=== PATIENT | male | born 1995 | race Caucasian/White ===

== ENCOUNTER → 2019-05-03 | Outpatient (CLI) | payer BC ==
[2019-05-05 23:06] LABS: CHLAMYDIA TRACHOMATIS, NAA Negative (Negative); NEISSERIA GONORRHOEAE, NAA Negative (Negative)
== END | disposition home or self-care (01) ==
LOC: LAB SHORT 10:35 → LAB EV 10:35 → LAB 10:35
PROVIDERS: Family Medicine
DX: R30.0 Dysuria (principal)
CPT/HCPCS: 87491; 87591

== ENCOUNTER 2019-11-05 17:12 | Inpatient (IN) | payer BC ==
[~2019-11-05] VITALS: Ht 180.3 cm; Wt 109.4 kg
[2019-11-05 17:58] LABS: Hematocrit 46.6 % (37.0-53.0); Hemoglobin 16.4 g/dL (13.5-17.5); Mean Corpuscular HGB 29.2 pg (26.0-34.0); Mean Corpuscular HGB Conc 35.2 g/dL (31.5-36.5); Mean Corpuscular Volume 83 fL (80-100); Mean Platelet Volume 8.9 fL (9.1-12.4); Platelet Count 483 K/mm3 (150-400); RDW Coefficient Variation 12.1 % (11.7-14.2); RDW Standard Deviation 36.9 fL (35.1-46.3); Red Blood Cell Count 5.61 M/mm3 (4.30-5.90); White Blood Cell Count 17.24 K/mm3 (4.00-11.30)
[2019-11-05] MEDS ORDERED: OXCA150 PO (18:13)
[2019-11-05] MEDS ORDERED: Oxcarbazepine600 MG PO (18:14)
[2019-11-05 18:24] LABS: Alanine Aminotransfer (ALT/SGP 61 U/L (12-78); Albumin, Blood 4.6 g/dL (3.4-5.0); Albumin/Globulin Ratio 1.4 (0.8-1.8); Alk Phos 97 U/L (50-136); Anion Gap 13 mmol/L (6-16); Aspartate Aminotrans (AST/SGOT 28 U/L (12-37); Bilirubin, Total 0.4 mg/dL (0.1-1.0); Blood Urea Nitrogen 17 mg/dL (8-24); Bun/Creatinine Ratio 19.5 (12.0-20.0); CO2, Blood 20 mmol/L (21-32); Calcium, Blood 9.7 mg/dL (8.5-10.1); Chloride, Blood 105 mmol/L (98-108); Creatinine, Blood 0.87 mg/dL (0.60-1.20); Globulin, Blood 3.2 g/dL (2.2-4.0); Glomerular Filtration Rate >60 (60-); Glucose, Blood 139 mg/dL (70-99); Potassium, Blood 2.7 mmol/L (3.5-5.5); Sodium, Blood 138 mmol/L (136-145); Total Protein, Blood 7.8 g/dL (6.4-8.2)
[2019-11-05 18:37] LABS: BASOPHILS PERCENT MAN 0 % (0-2); EOSINOPHILS PERCENT MAN 0 % (0-6); LYMPHOCYTES % ATYPICAL MANUAL 9 % (0-0); LYMPHOCYTES ABSOLUTE MAN 6.72 K/mm3 (0.84-5.20); LYMPHOCYTES PERCENT MAN 30 % (21-46); MONOCYTES ABSOLUTE MAN 0.68 K/mm3 (0.16-1.47); MONOCYTES PERCENT MAN 4 % (4-13); NEUTROPHILS ABSOLUTE MAN 9.82 K/mm3 (1.96-9.15); SEG NEUTROPHILS PERCENT MAN 57 % (41-73); TOTAL CELLS COUNTED 100
[2019-11-06 04:12] LABS: Hemoglobin 14.5 g/dL (13.5-17.5); Mean Corpuscular HGB 28.9 pg (26.0-34.0); Mean Corpuscular HGB Conc 33.7 g/dL (31.5-36.5); Mean Platelet Volume 8.7 fL (9.1-12.4); Platelet Count 287 K/mm3 (150-400); RDW Coefficient Variation 12.2 % (11.7-14.2); RDW Standard Deviation 38.5 fL (35.1-46.3); Red Blood Cell Count 5.01 M/mm3 (4.30-5.90); White Blood Cell Count 11.73 K/mm3 (4.00-11.30)
[2019-11-06 04:14] LABS: Mean Corpuscular Volume 86 fL (80-100)
[2019-11-06 04:36] LABS: Anion Gap 10 mmol/L (6-16); Blood Urea Nitrogen 13 mg/dL (8-24); Bun/Creatinine Ratio 20.4 (12.0-20.0); CO2, Blood 22 mmol/L (21-32); Calcium, Blood 7.8 mg/dL (8.5-10.1); Chloride, Blood 107 mmol/L (98-108); Creatinine, Blood 0.64 mg/dL (0.60-1.20); Glomerular Filtration Rate >60 (60-); Glucose, Blood 122 mg/dL (70-99); Potassium, Blood 4.1 mmol/L (3.5-5.5); Sodium, Blood 139 mmol/L (136-145)
--- NOTE | 2019-11-06 04:56 | NUR ---
SHIFT SUMMARY PT NEW ED ADMIT THIS EVENING WITH DX OF PANCREATITIS. PT A/O, STEADY ON FEET. AMBULATES INDEPENDENTLY. PT DID ATTEMPT TO TAKE A WALK IN THE HALLWAY BUT BECAME MORE PAINFUL AND RETURNED TO HIS BED. PT MEDICATED Q 2 HRS WITH 1 MG DILAUDID FOR ABD PAIN. PT ALSO HAD SEVERAL EPISODES OF NAUSEA AND ONE EPISODE OF VOMITING. 200 ML'S OF BILE APPEARING EMESIS. MEDICATED X 1 W/ ZOFRAN 4 MG. PT SLEPT OFF AND ON FOR SHORT BITS OF TIME AFTER BEING MEDICATED FOR PAIN, OTHERWISE WAS AWAKE THROUGHOUT THE NIGHT. VITAL SIGNS STABLE. PT RESTING IN BED AT THIS TIME. WILL CONTINUE TO MONITOR.
--- NOTE | 2019-11-06 12:28 | NUR ---
CLEAR LIQUID PER DR. MOSQUEDA, START PATIENT ON CLEAR LIQUID DIET
--- NOTE | 2019-11-06 19:22 | NUR ---
Shift Summary A/Ox4, pleasant and cooperative, calls appropriately using call light. Independent in room, urinal at bedside. Medicated for 7-9/10 left upper abd pain radiating to back per EMAR x 5 which provided moderate relief for the first 30 minutes according to patient. Patient slept on and off during the day. Medicated for nausea x 2. Patient reports bile appearing emesis after drinking water and PO liquid intakes. C/o increasing abdominal pain after drinking applejuice, otherwise, VSS, afebrile.
[2019-11-07 06:16] LABS: BASOPHILS ABSOLUTE AUTO 0.03 K/mm3 (0.00-0.23); BASOPHILS PERCENT AUTO 0 % (0-2); EOSINOPHILS ABSOLUTE AUTO 0.13 K/mm3 (0.00-0.68); EOSINOPHILS PERCENT AUTO 1 % (0-6); Hematocrit 43.1 % (37.0-53.0); Hemoglobin 14.7 g/dL (13.5-17.5); IMMATURE GRAN ABSOLUTE AUTO 0.03 K/mm3 (0.00-0.10); IMMATURE GRAN PERCENT AUTO 0 % (0-1); LYMPHOCYTES ABSOLUTE AUTO 1.03 K/mm3 (0.84-5.20); LYMPHOCYTES PERCENT AUTO 8 % (21-46); MONOCYTES ABSOLUTE AUTO 1.02 K/mm3 (0.16-1.47); MONOCYTES PERCENT AUTO 8 % (4-13); Mean Corpuscular HGB 29.3 pg (26.0-34.0); Mean Corpuscular HGB Conc 34.1 g/dL (31.5-36.5); Mean Corpuscular Volume 86 fL (80-100); Mean Platelet Volume 8.5 fL (9.1-12.4); NEUTROPHILS ABSOLUTE AUTO 11.23 K/mm3 (1.96-9.15); NEUTROPHILS PERCENT AUTO 83 % (41-73); Platelet Count 267 K/mm3 (150-400); RDW Coefficient Variation 12.3 % (11.7-14.2); RDW Standard Deviation 38.5 fL (35.1-46.3); Red Blood Cell Count 5.02 M/mm3 (4.30-5.90); White Blood Cell Count 13.47 K/mm3 (4.00-11.30)
[2019-11-07 06:32] LABS: Albumin, Blood 3.8 g/dL (3.4-5.0); Anion Gap 9 mmol/L (6-16); Blood Urea Nitrogen 7 mg/dL (8-24); Bun/Creatinine Ratio 9.8 (12.0-20.0); CO2, Blood 25 mmol/L (21-32); Calcium, Blood 8.5 mg/dL (8.5-10.1); Chloride, Blood 103 mmol/L (98-108); Creatinine, Blood 0.71 mg/dL (0.60-1.20); Glomerular Filtration Rate >60 (60-); Glucose, Blood 91 mg/dL (70-99); Phosphorus, Blood 2.9 mg/dL (2.5-4.9); Potassium, Blood 3.7 mmol/L (3.5-5.5); Sodium, Blood 137 mmol/L (136-145)
--- NOTE | 2019-11-07 07:30 | NUR ---
SHIFT SUMMARY PATIENT ALERT AND ORIENTED, INDEPENDANT GETTING UP AND AROUND IN HIS ROOM. PATIENT MEDICATED PER EMAR FOR PAIN AND NAUSEA. PATIENT'S IV PATENT AND INFUSING WITH LACTATED RINGERS AT 100 ML/HR. BED IN LOWEST POSITION WITH WHEELS LOCKED. CALL LIGHT WITHIN REACH. REPORT GIVEN TO ONCOMING RN.
--- NOTE | 2019-11-07 17:33 | NUR ---
PT CONINTINES TO HAVE PAIN AND IS MEDICATED PER EMAR. HIS IS ABLE TO AMBULATE TO RESTROOM. PT IS ALERT AND ORIENTED . NO ACUTE CHANGES.
[2019-11-08 05:02] LABS: BASOPHILS ABSOLUTE AUTO 0.03 K/mm3 (0.00-0.23); BASOPHILS PERCENT AUTO 0 % (0-2); EOSINOPHILS ABSOLUTE AUTO 0.23 K/mm3 (0.00-0.68); EOSINOPHILS PERCENT AUTO 2 % (0-6); Hematocrit 42.7 % (37.0-53.0); Hemoglobin 14.4 g/dL (13.5-17.5); IMMATURE GRAN ABSOLUTE AUTO 0.04 K/mm3 (0.00-0.10); IMMATURE GRAN PERCENT AUTO 0 % (0-1); LYMPHOCYTES ABSOLUTE AUTO 1.28 K/mm3 (0.84-5.20); LYMPHOCYTES PERCENT AUTO 10 % (21-46); MONOCYTES ABSOLUTE AUTO 1.36 K/mm3 (0.16-1.47); MONOCYTES PERCENT AUTO 10 % (4-13); Mean Corpuscular HGB Conc 33.7 g/dL (31.5-36.5); Mean Corpuscular Volume 86 fL (80-100); Mean Platelet Volume 8.6 fL (9.1-12.4); NEUTROPHILS ABSOLUTE AUTO 10.49 K/mm3 (1.96-9.15); NEUTROPHILS PERCENT AUTO 78 % (41-73); Platelet Count 273 K/mm3 (150-400); RDW Coefficient Variation 12.2 % (11.7-14.2); RDW Standard Deviation 38.6 fL (35.1-46.3); Red Blood Cell Count 4.96 M/mm3 (4.30-5.90); White Blood Cell Count 13.43 K/mm3 (4.00-11.30)
[2019-11-08 05:26] LABS: Albumin, Blood 3.7 g/dL (3.4-5.0); Anion Gap 10 mmol/L (6-16); Blood Urea Nitrogen 7 mg/dL (8-24); Bun/Creatinine Ratio 10.7 (12.0-20.0); CO2, Blood 23 mmol/L (21-32); Calcium, Blood 8.6 mg/dL (8.5-10.1); Chloride, Blood 102 mmol/L (98-108); Creatinine, Blood 0.65 mg/dL (0.60-1.20); Glomerular Filtration Rate >60 (60-); Glucose, Blood 76 mg/dL (70-99); Phosphorus, Blood 2.8 mg/dL (2.5-4.9); Potassium, Blood 3.5 mmol/L (3.5-5.5); Sodium, Blood 135 mmol/L (136-145)
--- NOTE | 2019-11-08 07:27 | NUR ---
SHIFT SUMMARY PATIENT ALERT AND ORIENTED. PATIENT MEDICATED PER EMAR FOR PAIN. PATIENT STATED THAT PAIN CONTROL WAS BETTER THAN THE PREVIOUS NIGHT HE WAS ABLE TO GET MORE SLEEP. POWERGLIDE PATENT AND INFUSING WITH LACTATED RINGERS AT 100 ML/HR. BED IN LOWEST POSITION WITH WHEELS LOCKED. CALL LIGHT WITHIN REACH. REPORT GIVEN TO ONCOMING RN.
--- NOTE | 2019-11-08 18:14 | NUR ---
PT CONTINUES TO HAVE PAIN ESPICALLY AFTER DRINKING SUGARY DRINKS. HE IS PLEASANT AND COOPERATIVE WITH CARES. HE AMBULATES SAFELY TO THE RESTROOM. HE IS MEDICATED PER EMAR. GI CONSULTED WITH PT THIS SHIFT. CALL LIGHT WITH IN REACH.
[2019-11-09 05:09] LABS: BASOPHILS ABSOLUTE AUTO 0.05 K/mm3 (0.00-0.23); BASOPHILS PERCENT AUTO 0 % (0-2); EOSINOPHILS ABSOLUTE AUTO 0.29 K/mm3 (0.00-0.68); EOSINOPHILS PERCENT AUTO 2 % (0-6); Hematocrit 42.9 % (37.0-53.0); Hemoglobin 14.7 g/dL (13.5-17.5); IMMATURE GRAN ABSOLUTE AUTO 0.04 K/mm3 (0.00-0.10); IMMATURE GRAN PERCENT AUTO 0 % (0-1); LYMPHOCYTES ABSOLUTE AUTO 1.63 K/mm3 (0.84-5.20); LYMPHOCYTES PERCENT AUTO 13 % (21-46); MONOCYTES ABSOLUTE AUTO 1.23 K/mm3 (0.16-1.47); MONOCYTES PERCENT AUTO 10 % (4-13); Mean Corpuscular HGB 29.3 pg (26.0-34.0); Mean Corpuscular HGB Conc 34.3 g/dL (31.5-36.5); Mean Corpuscular Volume 86 fL (80-100); NEUTROPHILS ABSOLUTE AUTO 9.18 K/mm3 (1.96-9.15); NEUTROPHILS PERCENT AUTO 74 % (41-73); Platelet Count 298 K/mm3 (150-400); RDW Coefficient Variation 12.2 % (11.7-14.2); RDW Standard Deviation 37.6 fL (35.1-46.3); Red Blood Cell Count 5.02 M/mm3 (4.30-5.90); White Blood Cell Count 12.42 K/mm3 (4.00-11.30)
[2019-11-09 05:27] LABS: Albumin, Blood 3.5 g/dL (3.4-5.0); Anion Gap 11 mmol/L (6-16); Blood Urea Nitrogen 8 mg/dL (8-24); CO2, Blood 24 mmol/L (21-32); Calcium, Blood 8.8 mg/dL (8.5-10.1); Chloride, Blood 100 mmol/L (98-108); Creatinine, Blood 0.67 mg/dL (0.60-1.20); Glomerular Filtration Rate >60 (60-); Glucose, Blood 81 mg/dL (70-99); Phosphorus, Blood 2.8 mg/dL (2.5-4.9); Potassium, Blood 3.4 mmol/L (3.5-5.5); Sodium, Blood 135 mmol/L (136-145)
--- NOTE | 2019-11-09 06:35 | NUR ---
SHIFT SUMMARY PATIENT ALERT AND ORIENTED AND INDEPENDENT IN HIS ROOM. PATIENT MEDICATED FOR PAIN PER EMAR. POWERGLIDE PATENT AND FLUSHED. BED IN LOWEST POSITION WITH WHEELS LOCKED. CALL LIGHT WITHIN REACH. REPORT GIVEN TO ONCOMING RN.
[2019-11-09] MEDS ORDERED: ONDA4ODT MM (10:16)
[2019-11-09] MEDS ORDERED: Percocet 5-3251 EACH PO (10:16)
--- NOTE | 2019-11-09 10:52 | NUR ---
DISCHARGE INSTRUCTIONS REVIEWED WITH PT, PG DC'D INTACT. RX FAXED TO [facility] AND HARD SCRIPT FOR PERCOCET GIVEN TO PT. DR MOSQUEDA CALLED PRIOR TO DISCHARGE AND SPOKE WITH DR MYERS. NEW PCP ASSIGNED FOR PT THROUGH [facility] [employer] [facility] AND APPT MADE FOR 11/12, PT CALLED AND SPOKE WITH DR FUENTES OFFICE AT [facility] FOR F/U APPT WITH THEM. PT INSTRUCTED ON CLEAR LIQUID DIET AT THIS TIME. PT CURRENTLY AWAITING RIDE HOME AT THIS TIME.
--- NOTE | 2019-11-09 11:10 | NUR ---
PT DISCHARGED HOME AT 1055, PT ESCORTED OUT TO RIDE.
== END 2019-11-09 10:55 | disposition home or self-care (01) | DRG 393 ==
LOC: ER 17:12 → MEDS 20:19 → ENPENDDIS 11-09 09:58 → MEDS 11-09 10:55
PROVIDERS: Emergency Medicine; Family Medicine; ADMIT Internal Medicine
DX: K91.89 Other postprocedural complications and disorders of digestive system (principal); K85.90 Acute pancreatitis without necrosis or infection, unspecified; E87.1 Hypo-osmolality and hyponatremia; G40.909 Epilepsy, unspecified, not intractable, without status epilepticus; E87.6 Hypokalemia; D47.3 Essential (hemorrhagic) thrombocythemia; K21.9 Gastro-esophageal reflux disease without esophagitis
CPT/HCPCS: 36415; 74176; 74181; 80048; 80053; 80069; 83690; 85025; 85027; 96361; 96365; 96366; 96375; 96376; 99285-25; A9270; A9270-GY; C9113; J0780; J1170; J1200; J1885; J2405; J2765; J3010; J3480; J7030; J7120